=== PATIENT | female | born 1955 | race Caucasian/White ===

== ENCOUNTER → 2025-01-04 10:49 | Outpatient (REF) | payer OTHER, SELFPAY | LOC: RAD 10:49 | PROVIDERS: ATTENDING PHYSICIAN Otolaryngology; FAMILY PHYSICIAN Family Medicine | DX: R59.0 Localized enlarged lymph nodes (principal) | CPT/HCPCS: 76536 ==

== ENCOUNTER → 2025-01-25 12:42 | Outpatient (REF) | payer OTHER, SELFPAY | LOC: RAD 12:42 | PROVIDERS: ATTENDING PHYSICIAN Otolaryngology; FAMILY PHYSICIAN Family Medicine | DX: R22.1 Localized swelling, mass and lump, neck (principal) | CPT/HCPCS: 70492; Q9967 ==

== ENCOUNTER 2025-03-14 05:58 | Day surgery (SDC) | payer OTHER, SELFPAY ==
[2025-03-14] VITALS (10 sets, daily range): BP systolic 83–125; BP diastolic 41–70; BMI 18.3
== END 2025-03-14 11:10 | disposition home or self-care (01) ==
LOC: SDS 05:58
PROVIDERS: ATTENDING PHYSICIAN Otolaryngology
DX: D11.0 Benign neoplasm of parotid gland (principal); K11.8 Other diseases of salivary glands
CPT/HCPCS: 42415; 88307